=== PATIENT | male | born 1985 | race Caucasian/White ===

== ENCOUNTER 2024-12-06 11:15 | Emergency (ER) | payer OTHER, SELFPAY ==
[2024-12-06 11:20] VITALS: BP 164/97; PULSE 89; RESP 18; TEMP 36.4; O2SAT 99; BMI 30.5
--- NOTE | 2024-12-06 11:54 | ED.URI ---
HPI - URI/Sore Throat <Nathalie Tovar PA-C - Last Filed: 12/06/24 14:36> General Chief Complaint: Upper Respiratory Symptoms Stated Complaint: Flu-Like Symptoms, SoB Time Seen by Provider: 12/06/24 11:46 Source: patient Mode of arrival: Ambulatory History of Present Illness HPI Narrative: Mr. Garner is a very pleasant 39-year-old male with a past medical history of hypertension who presents to the emergency department for cough x6 days. Patient states his daughter has been sick with croup and he believes he got sick from her. For the last 6 days he has had a very persistent, dry cough any postnasal drip. Cough is worse at night preventing him from sleeping. He has had a few episodes of posttussive vomiting because of the cough. Cough is very dry and coarse unable to cough up any mucus. Denies associated symptoms of fever, chills, sore throat, ear pain abdominal pain, shortness of breath chest pain at rest. He attempted to take NyQuil last night but states that it made him dizzy. No medications today. Nonsmoker, no drug or alcohol use. He drove himself to the ED. Related Data Previous Rx's Medication Instructions Recorded benzonatate 200 mg capsule 200 mg PO BID PRN cough #20 caps 12/06/24 hydrocodone-homatropine 5 mg-1.5 5 ml PO Q6H PRN cough #50 mL 12/06/24 mg/5 mL (5 mL) oral syrup (Hycodan) prednisone 20 mg tablet 20 mg PO DAILY 5 days #5 tabs 12/06/24 Allergies Allergy/AdvReac Type Severity Reaction Status Date / Time No Known Drug Allergies Allergy Verified 12/06/24 11:20 Review of Systems <Nathalie Tovar PA-C - Last Filed: 12/06/24 14:36> Review of Systems ROS Unobtainable: All systems reviewed & are unremarkable except as noted in HPI and below Patient History <Nathalie Tovar PA-C - Last Filed: 12/06/24 14:36> Social History Smoking Status: Never smoker Smoking Status: Never smoker Exam <Nathalie Tovar PA-C - Last Filed: 12/06/24 14:36> Narrative Exam Narrative: GENERAL: 39 year old patient appears stated age. Well-developed patient, persistent dry cough. HEAD: Atraumatic. Normocephalic. EYES: No scleral icterus. No injection or drainage. ENT: Nose without bleeding, purulent drainage. Throat without erythema, tonsillar hypertrophy or exudate. Airway patent. NECK: Trachea midline. Cervical ROM intact. CARDIOVASCULAR: Regular rate and rhythm. RESPIRATORY: ?Nonlabored respirations. ?Speaking in clear, full sentences. Very persistent dry, hoarse cough limiting deep inspiration. No wheezes auscultated. EXTREMITIES: No edema or joint tenderness. Strong PT pulses BL. NEURO: AOx3. ?Clear speech. ?Moves all 4 extremities appropriately. SKIN: No rash or erythema of visible areas Initial Vital Signs Initial Vital Signs: Vital Signs Temperature 97.5 F L 12/06/24 11:20 Pulse Rate 89 12/06/24 11:20 Respiratory Rate 18 12/06/24 11:20 Blood Pressure 164/97 H 12/06/24 11:20 Pulse Oximetry 99 12/06/24 11:20 Oxygen Delivery Method Room Air 12/06/24 11:20 <Tammy Olguin DO - Last Filed: 12/07/24 07:48> Initial Vital Signs Initial Vital Signs: Vital Signs Temperature 97.5 F L 12/06/24 11:20 Pulse Rate 89 12/06/24 11:20 Respiratory Rate 18 12/06/24 11:20 Blood Pressure 164/97 H 12/06/24 11:20 Pulse Oximetry 99 12/06/24 11:20 Oxygen Delivery Method Room Air 12/06/24 11:20 Course <Nathalie Tovar PA-C - Last Filed: 12/06/24 14:36> Orders Ordered: Discontinued Medications Benzonatate (Benzonatate 100 Mg Capsule) 200 mg PO NOW ONE Stop: 12/06/24 12:03 Last Admin: 12/06/24 12:19 Dose: 200 mg Documented By: LORI Ibuprofen (Ibuprofen 400 Mg Tablet) 600 mg PO NOW ONE Stop: 12/06/24 12:03 Last Admin: 12/06/24 12:19 Dose: 600 mg Documented By: LORI Vital Signs Vital signs: Vital Signs - 8 hr 12/06/24 11:20 12/06/24 13:38 Temperature 97.5 F L Pulse Rate 89 85 Respiratory Rate 18 16 Blood Pressure 164/97 H 131/83 Pulse Oximetry 99 98 Oxygen Delivery Method Room Air Room Air <Tammy Olguin DO - Last Filed: 12/07/24 07:48> Orders Ordered: Discontinued Medications Benzonatate (Benzonatate 100 Mg Capsule) 200 mg PO NOW ONE Stop: 12/06/24 12:03 Last Admin: 12/06/24 12:19 Dose: 200 mg Documented By: LORI Ibuprofen (Ibuprofen 400 Mg Tablet) 600 mg PO NOW ONE Stop: 12/06/24 12:03 Last Admin: 12/06/24 12:19 Dose: 600 mg Documented By: LORI Vital Signs Vital signs: Vital Signs - 8 hr 12/06/24 11:20 12/06/24 13:38 Temperature 97.5 F L Pulse Rate 89 85 Respiratory Rate 18 16 Blood Pressure 164/97 H 131/83 Pulse Oximetry 99 98 Oxygen Delivery Method Room Air Room Air MDM - URI/Sore Throat <Nathalie Tovar PA-C - Last Filed: 12/06/24 14:36> Medical Records Attestation: I reviewed the patient's medical records. Lab Data Labs: Lab Results 12/06/24 Range/Units 11:25 SARS-CoV-2 (PCR) Negative (Negative) Influenza A (RT-PCR) Flu a negative (NEGATIVE) Influenza B (RT-PCR) Flu b negative (NEGATIVE) RSV (PCR) Negative (Negative) [facility] Narrative Medical decision making narrative: 39-year-old male with a past medical history of hypertension who presents to the emergency department for cough x6 days. Differential diagnosis includes but is not limited to viral syndrome, bronchitis, pneumonia, croup, reactive airway disease, etc. On exam the patient is nontoxic appearing, afebrile and not tachycardic. He is oxygenating 99% on room air. He has a frequent dry and hoarse cough. Lung sounds overall normal however exam limited due to frequent coughing. Exposure to RSV. We will obtain viral swab, two-view chest x-ray, respiratory therapy consultation for saline nebulizer. We will treat with ibuprofen and Tessalon Perles. Viral swab negative. Two-view chest x-ray negative. Patient doing much better after ED treatment and saline nebulizer. Patient's symptoms consistent with viral bronchitis. Due to patient's cough, we will send short course of Hycodan to pharmacy primarily for patient to take at night to help with the aggressive cough so he can get some sleep. Sent short course of prednisone patient's pharmacy to help with inflammation of the bronchials, Jesse Dominguez for cough during daytime. Recommended warm tea with honey, increased hydration, ibuprofen/Tylenol if needed for pain and fevers and rest. Patient verbalized understanding of all information and is agreeable to the plan. We discussed strict ED return precautions and follow up with the PCP. Patient stable for discharge at this time, vital signs improved. [facility], they do not have Hycodan. Patient requesting handwritten script to take to another pharmacy, apparently [facility] does have. 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 <Tammy Olguin, - Last Filed: 12/07/24 07:48> Lab Data Labs: Lab Results 12/06/24 Range/Units 11:25 SARS-CoV-2 (PCR) Negative (Negative) Influenza A (RT-PCR) Flu a negative (NEGATIVE) Influenza B (RT-PCR) Flu b negative (NEGATIVE) RSV (PCR) Negative (Negative) Discharge Plan Departure Patient Disposition: Home Clinical Impression: Acute bronchitis, viral Instructions: DI for Acute Bronchitis Activity Restrictions/Additional Instructions: Thank you for coming to get checked out in the emergency room today. You were evaluated for cough and upper respiratory symptoms. Your COVID/flu/RSV swab was negative. Your chest x-ray was negative for pneumonia or any other abnormalities. You were evaluated by respiratory therapy and were given a saline nebulized breathing treatment in addition to anti-inflammatory pain medicine and cough medicine. You were diagnosed with a viral bronchitis. I have sent a prescription for a short course of steroids to help with inflammation to your pharmacy. I have also sent a prescription for benzonatate which is cough medicine that you can take throughout the day. I have sent a prescription for Hycodan which is an opioid pain medication/cough medication for you to take at night for severe cough. You have been prescribed a short course of narcotic medications. These are potentially dangerous and addictive medications that should be used carefully. While on these medications you cannot drive or operate heavy machinery. Additionally, you cannot sign legal documents or perform any duties such as this. Many people get constipated on narcotic medications so it would be advisable to discuss stool softeners with the pharmacist when you oyster picker your prescription. Please understand that we cannot provide further refills of narcotics or controlled substances through the ED and your pain management will need to be through your Primary Care Provider Please return to the emergency room if you develop any new or worsening symptoms, difficulty breathing, persistent fevers, persistent vomiting, chest pain, any other concerns. Please rest, hydrate, drink warm tea with honey, and use a humidifier by your bed at night. Please take Ibuprofen (Motrin/Advil) or Acetaminophen (Tylenol) for pain. These are available over the counter. You may take Ibuprofen 600 mg every 8 hours with food for pain. You may also take Acetaminophen 650 mg every 4-6 hours for pain. Do not exceed 3000 mg of Tylenol a day as this can cause liver damage. Do not drink alcohol with either of these medications. Please follow up with your primary care doctor within the next 2-3 days for ER follow-up. (If you do not have a PCP you can call [phone]. ?to schedule an appointment with an [facility] Primary Care Provider) IF YOU DEVELOP ANY NEW OR WORSENING SYMPTOMS, RETURN TO THE ER! Please read the attached instructions, they highlight more specific treatments and interventions for you at home. Thank you for letting me participate in your care, Nathalie Tovar PA-C Prescriptions: New hydrocodone-homatropine [Hycodan] 5-1.5 mg/5 mL (5 mL) syrup 5 ml PO Q6H PRN (Reason: cough) Qty: 50 0RF Rx Instructions: Take at night if needed for cough. benzonatate 200 mg capsule 200 mg PO BID PRN (Reason: cough) Qty: 20 0RF Rx Instructions: Keep away from children. prednisone 20 mg tablet 20 mg PO DAILY 5 Days Qty: 5 0RF Stand Alone Forms: Patient Portal/API/Survey, Work Release Note ED Sign-out <Tammy Olguin DO - Last Filed: 12/07/24 07:48> Cosign ED Attending Nithyaature Attestation: I was available for consultation.
--- NOTE | 2024-12-06 12:02 | DI.RAD.S_ITS ---
PROCEDURE: XR CHEST 2V INDICATIONS: cough x 6 days TECHNIQUE: 2 views of the chest were acquired. COMPARISON: None. FINDINGS: Surgical changes and devices: None. Lungs and pleura: Lungs are clear. No pleural effusions or pneumothorax. Mediastinum: Mediastinal contours are normal. Heart size is normal. Bones and chest wall: No suspicious bony abnormalities. Soft tissues appear unremarkable. IMPRESSION: No acute cardiopulmonary abnormality is seen. Dictated by: Bridget Sandoval M.D. on 12/06/2024 at 11:47 Approved by: Bridget Sandoval M.D. on 12/06/2024 at 11:51
[2024-12-06 12:18] LABS: Influenza A - CEPHEID Flu A NEGATIVE (NEGATIVE); Influenza B - CEPHEID Flu B NEGATIVE (NEGATIVE); Respiratory Syncytial Virus Negative (Negative)
[2024-12-06] MEDS: IBUPROFEN 400 MG TABLET 600 MG PO (12:19)
[2024-12-06] MEDS: BENZONATATE 100 MG CAPSULE 200 MG PO (12:19)
[2024-12-06 12:44] LABS: COVID-19 CEPHEID 4-PLEX PCR Negative (Negative)
[2024-12-06 13:38] VITALS: BP 131/83; PULSE 85; RESP 16; O2SAT 98
== END 2024-12-06 13:39 | disposition home or self-care (01) ==
PROVIDERS: Emergency Provider Physician Assistant
DX: J20.8 Acute bronchitis due to other specified organisms (principal)
CPT/HCPCS: 0241U; 71046; 99283